=== PATIENT | female | born 1990 | race Caucasian/White ===

== ENCOUNTER 2020-06-19 06:33 | Day surgery (SDC) | payer MEDICAID, SELFPAY ==
[~2020-06-19] VITALS: Ht 167.6 cm; Wt 68.0 kg
[2020-06-19 07:07] LABS: HCG,QUAL RESULT NEGATIVE (NEGATIVE)
[2020-06-19] MEDS ORDERED: fentaNYL CITRATE/PF 100 MCG/2 ML AMP ONE (08:04)
[2020-06-19] MEDS ORDERED: SIMETHICONE 40 MG/0.6 ML ML ONE (08:04)
[2020-06-19] MEDS ORDERED: MIDAZOLAM HCL 5 MG/5 ML VIAL ONE (08:04)
[2020-06-19] MEDS ORDERED: DIPHENHYDRAMINE INJ 50 MG/ML VIAL ONE (08:28)
[2020-06-19 08:56] VITALS: BP_SYST 106
== END 2020-06-19 09:37 | disposition home or self-care (01) ==
LOC: SLB 06:33 → SMU 06:47 → SLB 09:37
PROVIDERS: ATTEND Internal Medicine
DX: K62.5 Hemorrhage of anus and rectum (principal); Z20.828 Contact with and (suspected) exposure to other viral communicable diseases
CPT/HCPCS: 45380; 84703; 88305; 99152; G0378; J1200; J2250; J3010; J7030; U0003